=== PATIENT | female | born 1985 | race Caucasian/White ===

== ENCOUNTER 2017-08-26 17:21 | Emergency (ER) | payer OTHER ==
[~2017-08-26] VITALS: Ht 170.2 cm; Wt 79.4 kg
--- NOTE | 2017-08-26 18:05 | ED.ADGEN ---
Past History Past Medical History: Kidney Infection, Kidney Stones, UTI Adult General Chief Complaint Chief Complaint " I hurting again in my Rt. flank..."'' It just like the other kidney stone.." " I am sick..." HPI HPI Patient is a 32 year old female who presents with above hx and complaints of renal colic, last pasted stone Saturday at [facility]. Pt. rates her Rt flank pain as 10/10, stabbing. Pt. has had two prior stones that passed without surgery. Pt. nauseated. Complaints of fever and chills. Pt. follows with Dr. morrell at [facility] on Saturday and Urology at [facility]. Pt. denies any specific ill contacts, or history of immunosuppression. Patient has localized right flank pain that radiates to right groin. Level of pain appears to be distal ureter by patient's description. No psoas or heeltap sign. Patient is currently on Cipro. Review of Systems Review of Systems Constitutional: Complaints of fever or chills [] Eyes: Denies change in visual acuity, redness, or eye pain [] HENT: Denies nasal congestion or sore throat [] Respiratory: Denies cough or shortness of breath [] Cardiovascular: No additional information not addressed in HPI [] GI: Right flank abdominal pain, nausea,. Denies vomiting, bloody stools or diarrhea [] : Denies dysuria or hematuria [] Musculoskeletal: Complaints back pain Integument: Denies rash or skin lesions [] Neurologic: Denies headache, focal weakness or sensory changes [] Endocrine: Denies polyuria or polydipsia [] All other systems were reviewed and found to be within normal limits, except as documented in this note. Family History Family History Noncontributory Current Medications Current Medications Current Medications Medications (Trade) Dose Ordered Sig/Ariel Start Time Stop Time Status Last Admin Dose Admin Ceftriaxone Sodium 2 gm/ Sodium Chloride 100 ml @ 200 mls/hr 1X ONCE 08/26/17 19:45 08/26/17 19:46 DC Ceftriaxone Sodium (Rocephin) 2 gm 1X ONCE 08/26/17 20:00 08/26/17 20:01 DC 08/26/17 20:05 2 GM Hydromorphone HCl (Dilaudid) 2 mg 1X ONCE 08/26/17 22:45 08/26/17 22:46 DC 08/26/17 22:43 2 MG Ketorolac Tromethamine (Toradol) 30 mg 1X ONCE 08/26/17 19:45 08/26/17 19:46 DC 08/26/17 20:00 30 MG Lactated Ringer's 1,000 ml @ 1,000 mls/hr 1X STAT 08/26/17 20:45 08/26/17 21:44 DC 08/26/17 21:00 1,000 MLS/HR Morphine Sulfate (Morphine 4mg Syringe) 10 mg PRN Q15MIN PRN 08/26/17 18:15 08/26/17 23:38 DC 08/26/17 19:15 10 MG Ondansetron HCl (Zofran) 4 mg STK-MED ONCE 08/26/17 23:29 08/26/17 23:30 DC Sodium Chloride 1,000 ml @ 1,000 mls/hr Q1H 08/26/17 18:15 08/26/17 19:14 DC 08/26/17 18:32 1,000 MLS/HR Tamsulosin HCl (Flomax) 0.4 mg 1X ONCE 08/26/17 19:45 08/26/17 19:46 DC 08/26/17 19:58 0.4 MG See nursing for home meds Allergies Allergies Allergies Coded Allergies Type Severity Reaction Last Updated Verified No Known Drug Allergies 08/26/17 No Physical Exam Physical Exam Constitutional: Well developed, well nourished, severe distress, ill in appearance. [] HENT: Normocephalic, atraumatic, bilateral external ears normal, oropharynx moist, no oral exudates, nose normal. [] Eyes: PERRLA, EOMI, conjunctiva normal, no discharge. [] Neck: Normal range of motion, no tenderness, supple, no stridor. [] Cardiovascular:Heart rate regular rhythm, no murmur [] Lungs & Thorax: Bilateral breath sounds clear to auscultation [] Abdomen: Bowel sounds decreased, soft, Rt flank tenderness, no masses, no pulsatile masses. [] Skin: Warm, diaphoretic, no erythema, no rash. [] Back: No mid line tenderness, Rt flank CVA tenderness. [] Extremities: No tenderness, no cyanosis, no clubbing, ROM intact, no edema. [] Neurologic: Alert and oriented X 3, normal motor function, normal sensory function, no focal deficits noted. [] Psychologic: Affect anxious, judgement normal, mood normal. [] Current Patient Data Vital Signs Vital Signs Date Time Temp Pulse Resp B/P (MAP) Pulse Ox O2 Delivery O2 Flow Rate FiO2 08/26/17 22:43 16 96 08/26/17 21:11 83 115/62 (79) Room Air 08/26/17 17:25 102.1 Lab Results Laboratory Tests Test 08/26/17 18:15 08/26/17 18:21 08/26/17 19:20 08/26/17 20:00 Urine Collection Type Unknown Urine Color Yellow Urine Clarity Cloudy Urine pH 7.5 Urine Specific [place] 1.015 Urine Protein Neg (NEG-TRACE) Urine Glucose (UA) Neg mg/dL (NEG) Urine Ketones (Stick) Neg mg/dL (NEG) Urine Blood Large (NEG) Urine Nitrite Neg (NEG) Urine Bilirubin Neg (NEG) Urine Urobilinogen Dipstick 0.2 mg/dL (0.2 mg/dL) Urine Leukocyte Esterase Large (NEG) Urine RBC 3-5 /HPF (0-2) Urine WBC >40 /HPF (0-4) Urine Squamous Epithelial Cells Few /LPF Urine Bacteria 0 /HPF (0-FEW) Sodium Level 137 mmol/L (136-145) Potassium Level 3.5 mmol/L (3.5-5.1) Chloride Level 100 mmol/L (98-107) Carbon Dioxide Level 23 mmol/L (21-32) Anion Gap 14 (6-14) Blood Urea Nitrogen 9 mg/dL (7-20) Creatinine 0.6 mg/dL (0.6-1.0) Estimated GFR (Cockcroft-Gault) 115.9 Glucose Level 108 mg/dL (70-99) H Calcium Level 9.0 mg/dL (8.5-10.1) Total Bilirubin 0.6 mg/dL (0.2-1.0) Direct Bilirubin 0.1 mg/dL (0.0-0.2) Aspartate Amino Transferase (AST) 77 U/L (15-37) H Alanine Aminotransferase (ALT) 110 U/L (14-59) H Alkaline Phosphatase 136 U/L (46-116) H Total Protein 6.9 g/dL (6.4-8.2) Albumin 3.2 g/dL (3.4-5.0) L Urine Opiates Screen Neg (NEG) Urine Methadone Screen Neg (NEG) Urine Barbiturates Neg (NEG) Urine Phencyclidine Screen Neg (NEG) Urine Amphetamine/Methamphetamine Neg (NEG) Urine Benzodiazepines Screen Neg (NEG) Urine Cocaine Screen Neg (NEG) Urine Cannabinoids Screen Pos (NEG) Urine Ethyl Alcohol Neg (NEG) POC Urine HCG, Qualitative hcg negative (Negative) White Blood Count 18.2 x10^3/uL (4.0-11.0) H Red Blood Count 4.13 x10^6/uL (3.50-5.40) Hemoglobin 12.4 g/dL (12.0-15.5) Hematocrit 36.7 % (36.0-47.0) Mean Corpuscular Volume 89 fL (79-100) Mean Corpuscular Hemoglobin 30 pg (25-35) Mean Corpuscular Hemoglobin Concent 34 g/dL (31-37) Red Cell Distribution Width 13.8 % (11.5-14.5) Platelet Count 240 x10^3/uL (140-400) Neutrophils (%) (Auto) 85 % (31-73) H Lymphocytes (%) (Auto) 4 % (24-48) L Monocytes (%) (Auto) 10 % (0-9) H Eosinophils (%) (Auto) 0 % (0-3) Basophils (%) (Auto) 0 % (0-3) Neutrophils # (Auto) 15.5 x10^3uL (1.8-7.7) H Lymphocytes # (Auto) 0.8 x10^3/uL (1.0-4.8) L Monocytes # (Auto) 1.8 x10^3/uL (0.0-1.1) H Eosinophils # (Auto) 0.0 x10^3/uL (0.0-0.7) Basophils # (Auto) 0.1 x10^3/uL (0.0-0.2) Segmented Neutrophils % 87 % (35-66) H Lymphocytes % 6 % (24-48) L Monocytes % 6 % (0-10) Platelet Estimate Adequate (ADEQUATE) Prothrombin Time 10.5 SEC (9.4-11.4) Prothrombin Time INR 1.0 (0.9-1.1) PTT 24 SEC (23-33) Test 08/26/17 21:05 Lactic Acid Level 1.0 mmol/L (0.4-2.0) EKG EKG [] Radiology/Procedures Radiology/Procedures CT findings show a distal renal stone on right of 9.5 mm with hydro-ureter and hydronephrosis[]. See the formal report when available Course & Med Decision Making Course & Med Decision Making Pertinent Labs and Imaging studies reviewed. (See chart for details). Discussed presentation, testing and tx. plan with Dr. Ricci- advised pt. needs to go [facility]. Discussed presentation, testing and tx. plan with Dr. Bains- will accept pt in transfer to [facility]- and eventual Urology consult. [] Final Impression Final Impression 1. Renal Colic[]-right renal Stone 2. Pyelonephritis 3. Urinary tract infection 4. Leukocytosis 5. Elevated AST, ALT, and alkaline phosphatase 6. Urosepsis Problems: Dragon Disclaimer Dragon Disclaimer This electronic medical record was generated, in whole or in part, using a voice recognition dictation system. FRANK MIKE MD Aug 26, 2017 18:05
[2017-08-26] MEDS ORDERED: ONDANSETRON PF 4 MG/2 ML VIAL. IV ONE (18:15)
[2017-08-26] MEDS ORDERED: IV NORMAL SALINE 1,000ML 1,000 ML IV SCH (18:15)
[2017-08-26 19:00] LABS: AMPHETAMINE/METHAMPHETAMINE NEG (NEG); BARBITURATES NEG (NEG); BENZODIAZEPINES NEG (NEG); CANNABINOIDS POS (NEG); COCAINE NEG (NEG); METHADONE NEG (NEG); OPIATES NEG (NEG); PHENCYCLIDINE NEG (NEG)
[2017-08-26 19:02] LABS: ALBUMIN 3.2 g/dL (3.4-5.0); CREATININE 0.6 mg/dL (0.6-1.0); GFR 115.9; POTASSIUM 3.5 mmol/L (3.5-5.1); TOTAL BILIRUBIN 0.6 mg/dL (0.2-1.0); TOTAL PROTEIN 6.9 g/dL (6.4-8.2)
[2017-08-26 19:03] LABS: DIRECT BILIRUBIN 0.1 mg/dL (0.0-0.2)
[2017-08-26] MEDS: MORPHINE SULFATE 4 MG/ML DISP.SYRIN. SQ PRN ×2 (19:04→19:15)
--- NOTE | 2017-08-26 19:18 | RAD ---
Examination: CT abdomen pelvis without contrast HISTORY: History of severe right flank pain, nausea COMPARISON: None available TECHNIQUE: Axial CT images of the abdomen pelvis were performed without contrast. Coronal and sagittal reformats performed Exposure: One or more of the following individualized dose reduction techniques were utilized for this examination: 1. Automated exposure control 2. Adjustment of the mA and/or kV according to patient size 3. Use of iterative reconstruction technique. FINDINGS: The visualized bibasilar lungs are clear. No evidence of free air identified in the abdomen. The evaluation of the solid organs is limited due to lack of IV contrast. Evaluation of bowel is limited due to lack of oral contrast. The visualized liver, spleen, adrenals grossly appears unremarkable. The gallbladder is mildly distended. The visualized pancreas grossly appears unremarkable. The stomach is mildly distended. Small bowel is nondilated. The appendix is normal. Feces and gas noted in the colon. Urinary bladder is mildly distended. Punctate 2 mm intrarenal system calculi identified in the left kidney. There is mild right hydronephrosis and moderate right hydroureter identified with a 9.5 mm calculus identified in the distal right ureter just proximal to the right ureterovesical junction. The visualized uterus, adnexa grossly appears unremarkable. The caliber of the aorta grossly appears unremarkable No evidence of lytic bony destructive lesion. IMPRESSION: 1. 9.5 mm calculus identified in the distal right ureter causing moderate right sided hydroureter and mild right hydronephrosis. 2. Punctate intrarenal collecting system calculi identified in the left kidney. Electronically signed by: Law Damon MD (08/26/2017 7:15 PM) [id number]
[2017-08-26 19:19] LABS: BILIRUBIN,URINE NEG (NEG); CLARITY,URINE CLOUDY; COLOR,URINE YELLOW; GLUCOSE,URINE NEG (NEG); NITRITE,URINE NEG (NEG); UROBILINOGEN,URINE 0.2 mg/dL (0.2 mg/dL)
[2017-08-26 19:20] LABS: BACTERIA,URINE 0 /HPF (0-FEW); SQUAMOUS EPITHELIAL CELL,UR FEW /LPF; WBC,URINE >40 /HPF (0-4)
[2017-08-26 19:42] LABS: BASO # 0.1 x10^3/uL (0.0-0.2); BASO % 0 % (0-3); EOS % 0 % (0-3); HEMATOCRIT 36.7 % (36.0-47.0); HEMOGLOBIN 12.4 g/dL (12.0-15.5); LYMPH # 0.8 x10^3/uL (1.0-4.8); LYMPH % 4 % (24-48); MEAN CORPUSCULAR HEMOGLOBIN 30 pg (25-35); MEAN CORPUSCULAR HGB CONC 34 g/dL (31-37); MEAN CORPUSCULAR VOLUME 89 fL (79-100); MONO # 1.8 x10^3/uL (0.0-1.1); MONO % 10 % (0-9); NEUT # 15.5 x10^3uL (1.8-7.7); NEUT % 85 % (31-73); PLATELET COUNT 240 x10^3/uL (140-400); RED BLOOD COUNT 4.13 x10^6/uL (3.50-5.40); RED CELL DISTRIBUTION WIDTH 13.8 % (11.5-14.5); WHITE BLOOD COUNT 18.2 x10^3/uL (4.0-11.0)
[2017-08-26] MEDS ORDERED: TAMSULOSIN 0.4 MG CAP.ER.24H. PO ONE (19:45)
[2017-08-26] MEDS ORDERED: KETOROLAC 30 MG/ML VIAL. IV ONE (19:45)
[2017-08-26] MEDS ORDERED: cefTRIAXone IV Push 1 GM VIAL. IVP ONE (20:00)
[2017-08-26] MEDS ORDERED: cefTRIAXone IV Push 2 GM VIAL. IVP ONE (20:00)
[2017-08-26] MEDS ORDERED: IV RINGERS SOLUTION,LACTATED 1,000 ML IV STA (20:45)
[2017-08-26 21:11] VITALS: BP 115/62
[2017-08-26] MEDS ORDERED: HYDROmorphone PF 2 MG/ML VIAL ONE (22:30)
[2017-08-26] MEDS ORDERED: HYDROmorphone PF 2 MG/ML VIAL SQ ONE (22:45)
[2017-08-26 22:51] LABS: % LYMPHS 6 % (24-48); % MONOS 6 % (0-10); % SEGS 87 % (35-66); PLT ESTIMATE ADEQUATE (ADEQUATE)
[2017-08-26] MEDS ORDERED: ONDANSETRON PF 4 MG/2 ML VIAL. ONE (23:29)
--- NOTE | 2017-08-27 08:15 | RAD ---
Single view chest and supine and upright AP views abdomen 08/26/2017 Clinical indication: Severe right flank pain, nausea involving. Comparison: CT abdomen and pelvis 08/26/2017 Findings: Cardiac and mediastinal silhouettes are unremarkable. No pleural effusion, pneumothorax or focal consolidation. There is a nonobstructive bowel gas pattern with a moderate amount of retained colonic stool. No evidence of pneumoperitoneum. There are multiple pelvic calcific densities. Impression: 1. No acute cardiopulmonary abnormality. 2. Moderate retained colonic stool without radiographic evidence of bowel obstruction. 3. Pelvic calcific densities, largest on the right likely represents obstructive stone better visualized on same-day CT.
== END 2017-08-26 23:38 | disposition short-term general hospital (02) ==
LOC: ER 17:21
DX: N23 Unspecified renal colic (principal); N12 Tubulo-interstitial nephritis, not specified as acute or chronic; N39.0 Urinary tract infection, site not specified; D72.829 Elevated white blood cell count, unspecified; R74.0 Nonspecific elevation of levels of transaminase and lactic acid dehydrogenase [LDH]; R74.8 Abnormal levels of other serum enzymes; Z87.442 Personal history of urinary calculi
CPT/HCPCS: 36415; 74022; 74176; 80048; 80076; 80307; 81001; 81025; 83605; 85007; 85025; 85610; 85730; 87040; 87086; 96361; 96372; 96374; 96375; 99285; J0696; J1170; J1885; J2270; J2405; J7120; G0479; J7030